=== PATIENT | female | born 2000 | race Two or more races ===

== ENCOUNTER 2024-06-05 09:57 | Outpatient (CLI) | payer OTHER ==
[~2024-06-05 09:57] MED LIST: AFRIN SPRAY15 ML NS; AYR SALINE NA14.1 GM NASAL
== END 2024-06-05 10:04 | disposition home or self-care (01) ==
LOC: SONOGRAMA 09:57
PROVIDERS: ATTEND Internal Medicine
DX: E04.2 Nontoxic multinodular goiter (principal)

== ENCOUNTER 2024-10-10 11:13 | Inpatient (IN) | payer OTHER ==
[~2024-10-10] VITALS: Ht 213.4 cm; Wt 62.1 kg
[2024-10-10 10:38] VITALS: BP 111/75
[2024-10-10 10:43] LABS: PH,URINE 6.5 (5.0-8.0); URINE APPEARANCE Cloudy; URINE BILIRRUBIN Negative (NEGATIVE); URINE BLOOD Negative; URINE COLOR Yellow; URINE GLUCOSE Negative (NEGATIVE); URINE KETONE Negative (NEGATIVE); URINE LEUKOCYTE Negative; URINE NITRATE Negative; URINE PROTEIN Negative (NEGATIVE); URINE UROBILINOGEN 0.2 E.U./dl
[2024-10-10 10:44] LABS: HEMATOCRIT 42.5 % (36.0-45.00); HEMOGLOBIN 14.9 g/dL (12.0-15.00); MEAN CELL VOLUME 87.9 fL (80.00-100.00); MEAN CORPUSCULAR HEMOGLOBIN 30.8 pg (27.00-32.0); PLATELET COUNT 168 K/uL (150-450); RED BLOOD COUNT 4.84 M/uL (4.00-6.00); RED CELL DISTRIBUTION WIDTH 12.6 % (11.5-14.5)
[2024-10-10 10:49] LABS: URINE BACTERIA 29.3 uL (0.0-1933); URINE EPITHELIAL CELLS 4.5 uL (0.0-38.8)
[2024-10-10 11:02] LABS: PARTIAL THROMBOPLASTIN TIME 29.6 SECONDS (22.0-34.0); PROTHROMBIN TIME 10.9 SECONDS (9.0-11.5)
[2024-10-10 11:08] LABS: URINE RBC 0.2 uL (0.0-20.8); URINE WBC 1.5 uL (0.0-23.2)
[2024-10-10 11:53] LABS: ALBUMIN 4.1 gm/dL (3.4-5.0); BILIRUBIN TOTAL 0.43 mg/dL (0.3-1.2); CALCIUM 9.3 mg/dL (8.5-10.1); CREATININE SERUM 0.69 mg/dL (0.55-1.02); GFR 103.66; GLOBULINA 3.6 G/DL (2.4-3.5); POTASSIUM 4.3 mEq/L (3.5-5.1); TOTAL PROTEIN 7.7 gm/dL (6.4-8.2)
[2024-10-12] MEDS ORDERED: DEXAMETHASONE SODIUM PHOSPHATE 4 MG/ML VIAL ONE (07:48)
[2024-10-12] MEDS ORDERED: ONDANSETRON HCL 2 MG/ML VIAL IV PRN (09:15)
[2024-10-12] MEDS ORDERED: ENALAPRILAT DIHYDRATE 1.25 MG/ML VIAL IV PRN (09:15)
[2024-10-12] MEDS ORDERED: CYCLOBENZAPRINE HCL 5 MG TABLET PO NR (09:30)
[2024-10-12] MEDS ORDERED: MORPHINE SULFATE 4 MG/ML VIAL IV ONE (10:05)
[2024-10-12] MEDS ORDERED: TRAMADOL HCL 50 MG TABLET PO SCH (17:00)
[2024-10-12] MEDS ORDERED: ACETAMINOPHEN 500 MG GEL..CAP PO SCH (17:00)
[2024-10-12 17:15] VITALS: BP 104/63; O2SAT 100
[2024-10-12] MEDS ORDERED: PANTOPRAZOLE SODIUM 40 MG/VIAL VIAL IV PUSH SCH (21:00)
[2024-10-13] VITALS: BP 106/62; O2SAT 98
[2024-10-13 08:00] VITALS: BP 116/71; O2SAT 100
[2024-10-13] MEDS ORDERED: CYCLOBENZAPRINE HCL 5 MG TABLET PO SCH (09:00)
== END 2024-10-13 11:52 | disposition home or self-care (01) | DRG 627 ==
LOC: O/R 10-12 05:00 → SURG 10-12 11:43 → SURH 10-12 12:15 → EDSTATUS 10-12 14:23 → CIR.AMB 10-12 14:23 → SURH 10-12 14:24 → SURG 10-13 11:52
PROVIDERS: ADMIT Surgery; ATTEND Surgery
PROC: 0GTH0ZZ Resection of Right Thyroid Gland Lobe, Open Approach (ICD-10-PCS; principal; 2024-10-12 12:15)
DX: C73 Malignant neoplasm of thyroid gland (principal)

== ENCOUNTER → 2024-12-08 | Emergency (ER) | payer OTHER ==
[~2024-12-08] VITALS: Ht 170.2 cm; Wt 60.8 kg
[~2024-12-08] MED LIST changes: +ZOLOFT25 MG PO
[2024-12-08 13:36] LABS: COVID-19 AG NEGATIVE (NEGATIVE)
[2024-12-08 13:39] LABS: INFLUENZA A AG NEGATIVE (NEGATIVE)
== END | disposition home or self-care (01) ==
LOC: ER 11:12
PROVIDERS: General Practice
DX: J06.9 Acute upper respiratory infection, unspecified (principal); Z20.822 Contact with and (suspected) exposure to COVID-19

== ENCOUNTER 2025-04-19 09:26 | Outpatient (CLI) | payer OTHER | END 2025-04-19 09:33 | disposition home or self-care (01) | LOC: SONOGRAMA 09:26 | PROVIDERS: ATTEND Internal Medicine | DX: C73 Malignant neoplasm of thyroid gland (principal) ==

== ENCOUNTER → 2025-05-07 | Outpatient (CLI) | payer OTHER | END | disposition home or self-care (01) | LOC: SONOGRAMA 14:31 | PROVIDERS: ATTEND Obstetrics & Gynecology | DX: N60.11 Diffuse cystic mastopathy of right breast (principal); N60.12 Diffuse cystic mastopathy of left breast; Z12.31 Encounter for screening mammogram for malignant neoplasm of breast ==